=== PATIENT | female | born 1985 | race African-American/Black ===

== ENCOUNTER 2018-02-14 20:59 | Emergency (ER) | payer OTHER ==
[~2018-02-14] VITALS: Ht 162.6 cm; Wt 86.6 kg
[~2018-02-14 20:59] MED LIST: CLONIDINE HCL0.2 M2 PO; HYDREA500 MG PO; IRON325 PO; PREDNISONE 10 M10 MG PO; ROXICODONE15 M1 PO; ROXICODONE30 M1 PO; VENTOLIN HFA 1818 GM INH; XANAX1 MG PO
== END 2018-02-14 23:07 | disposition left against medical advice (07) ==
LOC: ER 20:59
DX: G89.29 Other chronic pain (principal); M79.604 Pain in right leg; M79.605 Pain in left leg; F41.9 Anxiety disorder, unspecified; G51.0 Bell's palsy; J45.909 Unspecified asthma, uncomplicated; I10 Essential (primary) hypertension; F17.210 Nicotine dependence, cigarettes, uncomplicated; Z90.89 Acquired absence of other organs; Z88.6 Allergy status to analgesic agent; Z88.5 Allergy status to narcotic agent; Z88.0 Allergy status to penicillin; Z88.8 Allergy status to other drugs, medicaments and biological substances